=== PATIENT | male | born 1970 | race Hispanic/Latino ===

== ENCOUNTER 2017-03-18 15:42 | Emergency (ER) | payer OTHER ==
[2017-03-18 15:43] VITALS: BMI 21.4
[2017-03-18 15:47] VITALS: BP 142/94; PULSE 121; RESP 16; TEMP 97.8; O2SAT 97
[2017-03-18] MEDS ORDERED: Thiamine 100 mg/ml Inj IV STA (16:03)
[2017-03-18] MEDS ORDERED: Sodium Chloride 0.9% 1,000 ML IV STA (16:03)
--- NOTE | 2017-03-18 16:15 | ED PDOC ---
HPI: Psych/Substance Abuse Time Seen by Provider: 03/18/17 15:54 Chief Complaint (Nursing): Substance Abuse Chief Complaint (Provider): Substance Abuse History Per: Patient, EMS Onset/Duration Of Symptoms: Mins Modifying Factor(s): Cocaine (Cocaine + heroin "speedball"), Other (Heroin) Additional Complaint(s): Armin William is a 46 year old male with a history of alcoholism and drug abuse that was brought in by EMS after his found him unresponsive post use of "speedball" (mixture of cocaine and heroin) and heroin. Patient was given Narcan intranasally by EMS and woke up. Patient currently has no complaints, and is repeatedly stating that his is "only an alcoholic," and that he only uses drugs every once in a while. He denies any suicidal ideation, homicidal ideation, hallucinations, or history of anxiety or depression. Of Note: Patient's phosphorous is noted to be less than 0.7. PMD: None Past Medical History Reviewed: Historical Data, Nursing Documentation, Vital Signs Vital Signs: Last Vital Signs Temp 97.8 F 03/18/17 15:44 Pulse 121 H 03/18/17 15:44 Resp 16 03/18/17 15:44 BP 142/94 H 03/18/17 15:44 Pulse Ox 97 03/18/17 15:44 - Medical History PMH: No Chronic Diseases Denies: Diabetes, Hepatitis, HIV, HTN, Seizures, Sexually Transmitted Disease - Surgical History Surgical History: No Surg Hx - Family History Family History: States: Unknown Family Hx - Social History Current smoker - smoking cessation education provided: Yes (Patient also chews tobacco) Alcohol: > 2 Drinks/Day Drugs: Other (heroin and speedball) - Immunization History Hx Tetanus Toxoid Vaccination: No Hx Influenza Vaccination: No Hx Pneumococcal Vaccination: No - Home Medications Home Medications: Ambulatory Orders Medication Instructions Recorded Clindamycin [Cleocin] 150 mg PO Q6 #39 cap 08/16/16 - Allergies Allergies/Adverse Reactions: Allergies Allergy/AdvReac Type Severity Reaction Status Date / Time No Known Allergies Allergy Verified 05/08/16 14:50 Review of Systems ROS Statement: Except As Marked, All Systems Reviewed And Found Negative Physical Exam - Reviewed Nursing Documentation Reviewed: Yes Vital Signs Reviewed: Yes - Physical Exam Appears: Positive for: No Acute Distress Head Exam: Positive for: ATRAUMATIC, NORMOCEPHALIC Skin: Positive for: Warm, Dry Eye Exam: Positive for: EOMI, PERRL ENT: Positive for: Other (tacky mucus membranes) Neck: Positive for: Painless ROM, Supple Cardiovascular/Chest: Positive for: Regular Rate, Rhythm, Chest Non Tender. Negative for: Murmur Respiratory: Positive for: Normal Breath Sounds. Negative for: Wheezing, Respiratory Distress Gastrointestinal/Abdominal: Positive for: Soft. Negative for: Tenderness Back: Positive for: Normal Inspection. Negative for: Decreased ROM Extremity: Positive for: Normal ROM. Negative for: Deformity Lymphatic: Negative for: Adenopathy Neurologic/Psych: Positive for: Alert, Oriented (x3), Mood/Affect (normal mood, anxious affect). Negative for: Motor/Sensory Deficits - Laboratory Results Result Diagrams: 03/18/17 16:48 03/18/17 14:48 - ECG O2 Sat by Pulse Oximetry: 97 (RA) Pulse Ox Interpretation: Normal Medical Decision Making Medical Decision Making: Impression: Polysubstance Abuse and Overdose Plan: * Alcohol Serum * CMP * CBC * Magnesium * Phosphorous * Thiamine * Lactic Acid * Urine Drug Screen * Urine Dip * Glucose, Blood, POC * NaCl 1000 mLs at 1000 mLs/hr * Reevaluation Patient will need to be observed for at least 90 minutes post Narcan due to duration of action of Narcan being shorter than heroin. Will reassess for somnolence and unresponsiveness. Time: 18:40 --pt awake and ox3 with no signs of intoxication. Discussed with patient findings including lab demonstrating glucocytosis. Pt denies any infectious symptoms and elevated WBC is likely due to acute stress reaction from overdose. Resources given for addiction services. --Stable for discharge Scribe Attestation: Documented by Natalie Reddy and Prudencio Castelan, acting as a scribe for Janiya Crawford MD. Provider Scribe Attestation: All medical record entries made by the Scribe were at my direction and personally dictated by me. I have reviewed the chart and agree that the record accurately reflects my personal performance of the history, physical exam, medical decision making, and the department course for this patient. I have also personally directed, reviewed, and agree with the discharge instructions and disposition. Disposition - Clinical Impression Clinical Impression: Polysubstance abuse, Opiate overdose - Patient ED Disposition Is Patient to be Admitted: No - Disposition Referrals: Alcoholics Anonymous [Outside] Disposition: Routine/Home Disposition Time: 18:49 Condition: IMPROVED Instructions: Polysubstance Abuse (ED), Opioid Overdose (ED) Forms: [facility] (Lebanese)
[2017-03-18 16:58] LABS: BASO % 0.2 % (0.0-2.0); EOS % 0.1 % (0.0-4.0); HEMOGLOBIN 15.2 g/dL (12.0-18.0); LYMPH # 0.8 K/uL (1.0-4.3); LYMPH % 3.3 % (20.0-40.0); MEAN CELL VOLUME 89.1 fl (80.0-94.0); MEAN CORPUSCULAR HEMOGLOBIN 29.1 pg (27.0-31.0); MEAN CORPUSCULAR HGB CONC 32.6 g/dL (33.0-37.0); MEAN PLATELET VOLUME 7.5 fl (7.2-11.7); MONO # 0.7 K/uL (0.0-0.8); NEUT % 93.4 % (50.0-75.0); NRBC % 0.1 % (0.0-0.0); PLATELET COUNT 214 K/uL (130-400); RBC 5.25 Mil/uL (4.40-5.90); RED CELL DISTRIBUTION WIDTH 13.7 % (11.5-14.5); WHITE BLOOD COUNT 24.6 K/uL (4.8-10.8)
[2017-03-18] MEDS ORDERED: Thiamine 100 mg/ml Inj ONE (17:05)
[2017-03-18 17:12] LABS: ALB/GLOB RATIO 1.3 (1.0-2.1); ALBUMIN 4.9 g/dL (3.5-5.0); ALT/SGPT 45 U/L (21-72); AST/SGOT 50 U/L (17-59); BLOOD UREA NITROGEN 17 mg/dl (9-20); GFR AFRICAN-AMERICAN > 60; GFR NON-AFRICAN AMERICAN > 60
[2017-03-18 18:34] LABS: BARBITURATES, UR NEGATIVE (NEGATIVE); BENZODIAZEPINES, UR NEGATIVE (NEGATIVE); PHENCYCLIDINE, UR NEGATIVE (NEGATIVE)
[2017-03-18 18:42] LABS: OPIATES, UR POSITIVE (NEGATIVE)
[2017-03-18 18:59] LABS: ANISOCYTOSIS SLIGHT; BANDS 4 % (0-2); HYPOCHROMIC SLIGHT; LYMPHOCYTE 6 % (20-50); MONOCYTE 2 % (0-10); NEUTROPHIL 88 % (42-75); PLATELET ESTIMATE NORMAL (NORMAL); TOTAL CELLS COUNTED 100
[2017-03-18 19:01] LABS: TEARDROP CELLS SLIGHT
== END 2017-03-18 19:02 | disposition home or self-care (01) ==
LOC: H.ER 15:42
DX: F11.10 Opioid abuse, uncomplicated (principal); F19.10 Other psychoactive substance abuse, uncomplicated; F17.200 Nicotine dependence, unspecified, uncomplicated; T40.601A Poisoning by unspecified narcotics, accidental (unintentional), initial encounter
CPT/HCPCS: 80053; 80320; 80324; 80345; 80346; 80349; 80353; 80358; 80361; 82948; 83605; 83735; 83992; 84100; 85025; 96374; 99284; J3411; J7040

== ENCOUNTER 2017-07-22 11:15 | Emergency (ER) | payer MEDICAID, OTHER ==
[2017-07-22 11:32] VITALS: BMI 21.0
--- NOTE | 2017-07-22 12:11 | ED PDOC ---
HPI: Trauma/Fall - HPI Time Seen by Provider: 07/22/17 12:02 Chief Complaint (Nursing): Trauma Chief Complaint (Provider): Trauma History Per: Patient History/Exam Limitations: no limitations Onset/Duration Of Symptoms: Days (x2) Additional Complaint(s): 46 year old male presents to the ED complaining of right hip pain and bilateral leg pain, onset two days ago. Patient states that on Sunday night, while being drunk, he slipped and fell in the shower. Patient reports of taking no medications to relieve symptoms. Patient is ambulating with no assistance. Denies head injury and vision changes. PMD: None Past Medical History Reviewed: Historical Data, Nursing Documentation, Vital Signs Vital Signs: Last Vital Signs Temp 98.4 F 07/22/17 11:30 Pulse 76 07/22/17 11:30 Resp BP 161/100 H 07/22/17 11:30 Pulse Ox 99 07/22/17 11:30 - Medical History PMH: Denies: Diabetes, Hepatitis, HIV, HTN, Seizures, Sexually Transmitted Disease - Surgical History Surgical History: No Surg Hx - Family History Family History: States: Unknown Family Hx - Immunization History Hx Tetanus Toxoid Vaccination: No Hx Influenza Vaccination: No Hx Pneumococcal Vaccination: No - Home Medications Home Medications: Ambulatory Orders Medication Instructions Recorded Clindamycin [Cleocin] 150 mg PO Q6 #39 cap 08/16/16 Cyclobenzaprine [Cyclobenzaprine 10 mg PO TID PRN #15 tab 07/22/17 HCl] Naproxen [Naprosyn] 500 mg PO BID PRN #15 tablet 07/22/17 - Allergies Allergies/Adverse Reactions: Allergies Allergy/AdvReac Type Severity Reaction Status Date / Time No Known Allergies Allergy Verified 07/22/17 11:49 Review of Systems ROS Statement: Except As Marked, All Systems Reviewed And Found Negative Musculoskeletal: Positive for: Leg Pain (bilateral leg and right hip pain ) Physical Exam - Reviewed Nursing Documentation Reviewed: Yes Vital Signs Reviewed: Yes - Physical Exam Appears: Positive for: Non-toxic, No Acute Distress Head Exam: Positive for: ATRAUMATIC, NORMOCEPHALIC Skin: Positive for: Normal Color, Warm, Dry Eye Exam: Positive for: Normal appearance, EOMI, PERRL ENT: Positive for: Normal ENT Inspection Neck: Positive for: Normal, Painless ROM, Supple Cardiovascular/Chest: Positive for: Regular Rate, Rhythm. Negative for: Murmur Respiratory: Positive for: Normal Breath Sounds. Negative for: Respiratory Distress Gastrointestinal/Abdominal: Positive for: Normal Exam, Soft, Other (ecchymosis to right anterior hip; Full ROM, no deformity). Negative for: Tenderness Back: Positive for: Normal Inspection Extremity: Positive for: Normal ROM, Tenderness (to right lateral leg, proximal to knee. Full ROM at the knee; tenderness to left medial leg proximal to knee, Full ROM at the knee. ). Negative for: Other (Ecchymosis) Comments: Distal Pulses: 2+ - ECG O2 Sat by Pulse Oximetry: 99 (RA) Pulse Ox Interpretation: Normal Medical Decision Making Medical Decision Making: Time: 1209 Impression: Musculoskeletal Pain s/p Fall Plan: -- Motrin 600 mg PO -- Hip Right [HIP MIN 2V W/ PELVIS RT] XR -- Knees Bilateral XR Time: 1316 HIP/PELVIS XR RESULTS FINDINGS: BONES: Normal. No fracture. JOINTS: Normal. SOFT TISSUES: Normal. OTHER FINDINGS: None. IMPRESSION: No evidence of acute fracture or dislocation. Time: 1319 KNEE XR RESULTS FINDINGS: BONES: Right Knee: Normal. No fracture. Left Knee: Normal. No fracture. JOINTS: Right Knee: Mild osteoarthritic changes Left knee: Mild osteoarthritic changes. SOFT TISSUES: Right Knee: Normal. Left Knee: Normal. JOINT EFFUSION: Right Knee: None. Left Knee: None. OTHER FINDINGS: None. IMPRESSION: Mild osteoarthritic changes. Scribe Attestation: Documented by Shakeel Lobo, acting as a scribe for Dr. Lolly Sparrow MD. Provider Scribe Attestation: All medical record entries made by the Scribe were at my direction and personally dictated by me. I have reviewed the chart and agree that the record accurately reflects my personal performance of the history, physical exam, medical decision making, and the department course for this patient. I have also personally directed, reviewed, and agree with the discharge instructions and disposition. Disposition - Clinical Impression Clinical Impression: Musculoskeletal pain - Disposition Referrals: [facility] [Outside] Disposition: Routine/Home Disposition Time: 13:32 Condition: STABLE Prescriptions: Cyclobenzaprine [Cyclobenzaprine HCl] 10 mg PO TID PRN #15 tab PRN Reason: Pain Naproxen [Naprosyn] 500 mg PO BID PRN #15 tablet PRN Reason: Pain, Moderate (4-7) Instructions: Muscle and Bone Pain (DC) Forms: [facility] (Yakut), [facility] ED School/Work Excuse
--- NOTE | 2017-07-22 13:17 | RAD ---
PROCEDURE: Right Hip Radiographs. HISTORY: Pain COMPARISON: None. FINDINGS: BONES: Normal. No fracture. JOINTS: Normal. SOFT TISSUES: Normal. OTHER FINDINGS: None. IMPRESSION: No evidence of acute fracture or dislocation.
--- NOTE | 2017-07-22 13:21 | RAD ---
PROCEDURE: Bilateral Knee Radiographs. HISTORY: Bilateral LE pain, proximal to knees COMPARISON: None. FINDINGS: BONES: Right Knee: Normal. No fracture. Left Knee: Normal. No fracture. JOINTS: Right Knee: Mild osteoarthritic changes Left knee: Mild osteoarthritic changes. SOFT TISSUES: Right Knee: Normal. Left Knee: Normal. JOINT EFFUSION: Right Knee: None. Left Knee: None. OTHER FINDINGS: None. IMPRESSION: Mild osteoarthritic changes.
[2017-07-22 14:02] VITALS: BP 110/70; PULSE 78; RESP 20; TEMP 98
[2017-07-27 17:08] VITALS: O2SAT 99
== END 2017-07-22 14:01 | disposition home or self-care (01) ==
LOC: H.ER 11:15
DX: M79.1 Myalgia (principal); W01.0XXA Fall on same level from slipping, tripping and stumbling without subsequent striking against object, initial encounter; Y93.E1 Activity, personal bathing and showering